=== PATIENT | male | born 1945 | race Hispanic/Latino ===

== ENCOUNTER → 2021-06-02 | Outpatient (CLI) | payer MEDICARE ==
[~2021-06-02] MED LIST: AEC81 PO; ATOR10TA69 PO
== END | disposition home or self-care (01) ==
LOC: OIH 10:22
PROVIDERS: ATTEND Internal Medicine Cardiovascular Disease
DX: I65.23 Occlusion and stenosis of bilateral carotid arteries (principal)
CPT/HCPCS: 93880

== ENCOUNTER → 2021-06-29 | Outpatient (CLI) | payer MEDICARE | END | disposition home or self-care (01) | LOC: RAH 08:37 | PROVIDERS: ATTEND Internal Medicine Cardiovascular Disease | DX: I47.2 Ventricular tachycardia (principal) | CPT/HCPCS: 78452; 93017; 96374; A9500 ×2 ==

== ENCOUNTER → 2023-09-26 | Outpatient (CLI) | payer MEDICARE | END | disposition home or self-care (01) | LOC: SHCH 07:42 | PROVIDERS: ATTEND Internal Medicine Cardiovascular Disease | DX: I70.203 Unspecified atherosclerosis of native arteries of extremities, bilateral legs (principal) | CPT/HCPCS: 93925 ==

== ENCOUNTER → 2024-03-20 | Outpatient (CLI) | payer MEDICARE | END | disposition home or self-care (01) | LOC: SHCH 09:29 | PROVIDERS: ATTEND Internal Medicine Cardiovascular Disease | DX: I47.10 Supraventricular tachycardia, unspecified (principal) | CPT/HCPCS: 93306 ==

== ENCOUNTER 2024-05-09 05:55 | Day surgery (SDC) | payer MEDICARE ==
[2024-05-08 09:50] LABS: BASOPHILS # (AUTO) 0.03 K/uL (0.00-0.20); BASOPHILS % (AUTO) 0.7 % (0.0-5.0); EOSINOPHILS # (AUTO) 0.05 K/uL (0.00-0.70); EOSINOPHILS % (AUTO) 1.1 % (0.0-8.0); HEMATOCRIT 42.9 % (42-54); IMMATURE GRANULOCYTE ABSOLUTE 0.02 K/uL (0-1); LYMPHOCYTES # (AUTO) 1.1 K/uL (1.0-4.8); LYMPHOCYTES % (AUTO) 24.3 % (21.0-51.0); MEAN CORPUSCULAR HEMOGLOBIN 29.6 pg (27.0-33.0); MEAN CORPUSCULAR HGB CONC 34.3 g/dL (32.0-36.0); MEAN CORPUSCULAR VOLUME 86.3 fL (79-99); MONOCYTES # (AUTO) 0.4 K/uL (0.1-1.0); NEUTROPHILS % (AUTO) 64.5 % (40.0-77.0); PLATELET COUNT (AUTO) 162 K/uL (130-400); RED BLOOD CELL COUNT(AUTO) 4.97 MIL/uL (4.50-6.20); RED CELL DISTRIBUTION WIDTH 12.8 % (11.0-15.5); WHITE BLOOD COUNT (AUTO) 4.6 K/uL (4.8-10.8)
[2024-05-08 09:51] VITALS: BP 148/80; PULSE 61; RESP 18; TEMP 98.6
[2024-05-08 09:58] LABS: POTASSIUM 4.6 mmol/L (3.5-5.1)
--- NOTE | 2024-05-08 10:07 | EKG ---
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
[~2024-05-09] VITALS: Ht 188 cm; Wt 104.2 kg
[~2024-05-09 05:55] MED LIST changes: -AEC81 PO; +APIX5TAB PO; -ATOR10TA69 PO; +DONE10TA43 PO; +EZET10TA48 PO; +KETO5DRO40 OS; +METO-408 PO; +ROSU40TA88 PO
[2024-05-09 06:10] VITALS: BP 146/84; PULSE 64; RESP 12; TEMP 97
[2024-05-09] MEDS: 0.9%NACL 1000ML 1,000 ML IV ONE (06:55)
[2024-05-09] MEDS ORDERED: LIDOCAINE HCL 1% MDV 50ML VIAL ONE (07:23)
[2024-05-09] MEDS ORDERED: BUPIvacaine/PF 0.25% 30ML VIAL IJ ONE (07:23)
[2024-05-09] MEDS ORDERED: MEPERIDINE-PF 25 MG/ML SYG ONE (07:44)
[2024-05-09] MEDS ORDERED: MIDAZOLAM HCL 1 MG/ML 2ML VIAL ONE (07:45)
[2024-05-09 08:35] VITALS: BP 153/88; PULSE 65; RESP 12; TEMP 97.7
[2024-05-09 08:50] VITALS: BP 153/87; PULSE 64; RESP 12
--- NOTE | 2024-05-09 09:00 | NUR ---
D/C PT AND SPOUSE GIVEN D/C INSTRUCTIONS. BOTH VOICED UNDERSTANDING. PT TAKEN OUT VIA W/C IN NO DISTRESS. NO HEMATOMA OR BLEEDING NOTED TO SITE
== END 2024-05-09 09:00 | disposition home or self-care (01) ==
LOC: DAH 05:55
PROVIDERS: ATTEND Internal Medicine Cardiovascular Disease
DX: Z45.09 Encounter for adjustment and management of other cardiac device (principal); I48.0 Paroxysmal atrial fibrillation; E78.5 Hyperlipidemia, unspecified; I25.10 Atherosclerotic heart disease of native coronary artery without angina pectoris; Z85.46 Personal history of malignant neoplasm of prostate; I10 Essential (primary) hypertension; Z79.01 Long term (current) use of anticoagulants; Z79.899 Other long term (current) drug therapy
CPT/HCPCS: 80048; 85025; 36415; 93005; 33285; A4649; C1764; J7030; J0665; J2250; J2175; J3490; A4215; A4222; A4221; A4663; A4216; A4606; A4223 ×3; 33286; 99156; 99157